=== PATIENT | female | born 1970 | race Caucasian/White ===

== ENCOUNTER 2017-02-20 00:29 | Inpatient (IN) | payer BC, OTHER ==
[2017-02-20 03:31] LABS: ABSOLUTE EOSINOPHILS # (AUTO) 0.1 10^3/uL (0.0-0.6); ABSOLUTE LYMPHOCYTES (AUTO) 2.1 10^3/uL (0.5-4.7); ABSOLUTE NEUT (AUTO) 11.4 10^3/uL (1.7-8.2); BASOPHILS % (AUTO) 0.2 % (0-2); HEMATOCRIT 43.1 % (36.0-47.0); HEMOGLOBIN 14.3 g/dL (12.0-15.5); HGB HCT DIFFERENCE -0.2; LYMPHOCYTES % (AUTO) 14.2 % (13-45); MEAN CORPUSCULAR HEMOGLOBIN 29.3 pg (27.0-33.4); MEAN CORPUSCULAR HGB CONC 33.2 g/dL (32.0-36.0); MEAN CORPUSCULAR VOLUME 88 fl (80-97); MONOCYTES % (AUTO) 6.5 % (3-13); RED BLOOD COUNT 4.88 10^6/uL (3.72-5.28); RED CELL DISTRIBUTION WIDTH 12.9 % (11.5-14.0); SEGMENTED NEUTROPHILS % (AUTO) 78.1 % (42-78); WHITE BLOOD COUNT 14.6 10^3/uL (4.0-10.5)
[2017-02-20 03:38] LABS: ALANINE AMINOTRANSFERASE 204 U/L (9-52); ALBUMIN 4.2 g/dL (3.5-5.0); ALKALINE PHOSPHATASE 103 U/L (38-126); ANION GAP 11 (5-19); ASPARTATE AMINO TRANSFERASE 355 U/L (14-36); BILIRUBIN,DIRECT 0.5 mg/dL (0.0-0.4); BLOOD UREA NITROGEN 18 mg/dL (7-20); CALCIUM 9.6 mg/dL (8.4-10.2); CARBON DIOXIDE 27 mmol/L (22-30); CHLORIDE 104 mmol/L (98-107); GLUCOSE 111 mg/dL (75-110); SODIUM 142.4 mmol/L (137-145); TOTAL PROTEIN 7.1 g/dL (6.3-8.2)
[2017-02-20 04:25] LABS: LIPASE 51815.2 U/L (23-300)
[2017-02-20] MEDS ORDERED: KETOROLAC TROMETHAMINE INJ/PF 30 MG/1 ML SDV IV ONE (04:40)
[2017-02-20] MEDS ORDERED: NORMAL SALINE 1000 ML 1,000 ML IV PRN (05:55)
[2017-02-20] MEDS ORDERED: NORMAL SALINE 1000 ML 1,000 ML IV ONE (05:55)
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
[2017-02-20 06:09] LABS: APPEARANCE,URINE CLOUDY; BILIRUBIN,URINE NEGATIVE (NEGATIVE); GLUCOSE, URINE NEGATIVE (NEGATIVE); KETONES,URINE NEGATIVE (NEGATIVE); LEUKOCYTE ESTERASE,URINE LARGE (NEGATIVE); NITRITE,URINE NEGATIVE (NEGATIVE); PROTEIN,URINE NEGATIVE (NEGATIVE); URINE SPECIFIC GRAVITY 1.014
[2017-02-20] MEDS: MORPHINE SULFATE 10 MG/ML INJ IV PRN ×2 (06:36→07:29)
--- NOTE | 2017-02-20 07:21 | RADIOLOGY REPORT (SQ) ---
EXAM DESCRIPTION: U/S ABDOMEN COMPLETE W/O DOP COMPLETED DATE/TIME: 02/20/2017 7:12 am REASON FOR STUDY: upper abdominal pain need left and right COMPARISON: CT dated 10/11/2011 TECHNIQUE: Dynamic and static grayscale images acquired of the abdomen and recorded on PACS. Additio nal selected color Doppler and spectral images recorded. LIMITATIONS: None. FINDINGS: PANCREAS: No masses. Visualized pancreatic duct normal caliber. LIVER: No masses. Echotexture normal. LIVER VASCULATURE: Normal directional flow of the main portal vein and hepatic veins. GALLBLADDER: Gallstone(s). No pericholecystic fluid. No wall thickening. ULTRASOUND-DETECTED HANNON'S SIGN: Negative. INTRAHEPATIC DUCTS AND COMMON DUCT: CBD and intrahepatic ducts normal caliber. No filling defects. C ommon bile duct measures 5 mm INFERIOR VENA CAVA: Normal flow. AORTA: No aneurysm. RIGHT KIDNEY: Normal size. Normal echogenicity. No solid or suspicious masses. No hydronephros is. No calcifications. LEFT KIDNEY: Normal size. Normal echogenicity. No solid or suspicious masses. No hydronephrosi s. No calcifications. SPLEEN: For patient's the head prior splenectomy. The hypoechoic soft tissue seen in the left upper quadrant measuring 5.8 x 5.0 x 5.8 cm. This could represent residual splenic tissue post splenectomy . CT from 2012 demonstrates splenic like cyst in the left upper quadrant. PERITONEAL AND PLEURAL SPACES: No ascites or effusions. OTHER: No other significant finding. IMPRESSION: Hypoechoic soft tissue seen in the left upper quadrant presumed to represent residual sp lenic tissue eft for 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 Finding correlates to that seen on prior CT from 2012. No other significant abnormality identified. TECHNICAL DOCUMENTATION: JOB ID: [id number] [employer]- All Rights Reserved
[2017-02-20] MEDS ORDERED: ONDANSETRON HCL INJ/PF 4 MG/2 ML SDV IV ONE (07:26)
[2017-02-20] MEDS ORDERED: HYDROMORPHONE HCL INJ/PF 2 MG/ML AMPULE IV ONE ×3 (07:49→10:40)
[2017-02-20] MEDS ORDERED: METOCLOPRAMIDE HCL INJ/PF 10 MG/2 ML SDV IV ONE (07:49)
--- NOTE | 2017-02-20 10:14 | RADIOLOGY REPORT (SQ) ---
EXAM DESCRIPTION: MRI ABDOMEN WITHOUT COMPLETED DATE/TIME: 02/20/2017 10:00 am REASON FOR STUDY: mrcp, gallstone pancreatitis COMPARISON: ULTRASOUND FROM 02/20/[address] FROM 10/11/2011 TECHNIQUE: Noncontrast MRCP. Source and MIP images reviewed. LIMITATIONS: Artifact from gastric occlusion balloon. FINDINGS: GALLBLADDER: Gallstones. No inflammatory change. INTRAHEPATIC DUCTS: Nondilated. EXTRAHEPATIC DUCTS: Common duct is normal caliber. No dilatation of the pancreatic duct. No ductal filling defects noted. PANCREAS: Generally homogeneous, no gross mass or significant signal alteration. No surrounding infl ammatory changes or fluid. Pancreatic duct is normal. LIVER, SPLEEN, KIDNEYS, ADRENALS: Stable postsurgical change related to splenectomy with large splenu le again visualized. Liver, kidneys, and adrenal glands are grossly normal. VESSELS: No evidence of aneurysm. Grossly appropriate flow voids in the major vascular structures. LUNG BASES: Grossly clear. OTHER: No other significant finding. IMPRESSION: CHOLELITHIASIS. OTHERWISE UNREMARKABLE HEPATOBILIARY SYSTEM. NO STONES OR COMMON DUCT A BNORMALITIES. TECHNICAL DOCUMENTATION: JOB ID: [id number] [employer]- All Rights Reserved
[2017-02-20] MEDS ORDERED: ONDANSETRON HCL INJ/PF 4 MG/2 ML SDV IV PRN (10:59)
[2017-02-20] MEDS ORDERED: HYDROMORPHONE HCL INJ/PF 2 MG/ML AMPULE IV PRN (11:04)
[2017-02-20] MEDS ORDERED: ENOXAPARIN SODIUM INJ 40 MG/0.4 ML DISP.SYRIN SUBCUT ONE (12:00)
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
[2017-02-20] MEDS: HYDROMORPHONE HCL INJ/PF 2 MG/ML AMPULE IV PRN ×3 (13:24→21:22)
[2017-02-20] MEDS: NORMAL SALINE 1000 ML 1,000 ML IV PRN ×3 (13:24→21:24)
[2017-02-20] MEDS: ACETAMINOPHEN 325 MG TABLET PO PRN (19:36)
[2017-02-20] MEDS: FAMOTIDINE INJ/PF 20 MG/2 ML SDV IV SCH (21:22)
[2017-02-21] MEDS: NORMAL SALINE 1000 ML 1,000 ML IV PRN ×4 (05:08→20:09)
[2017-02-21] MEDS: HYDROMORPHONE HCL INJ/PF 2 MG/ML AMPULE IV PRN ×5 (05:08→23:19)
[2017-02-21 06:26] LABS: ABSOLUTE BASOPHILS # (AUTO) 0.1 10^3/uL (0.0-0.2); ABSOLUTE EOSINOPHILS # (AUTO) 0.4 10^3/uL (0.0-0.6); ABSOLUTE LYMPHOCYTES (AUTO) 2.4 10^3/uL (0.5-4.7); ABSOLUTE MONOCYTES (AUTO) 0.5 10^3/uL (0.1-1.4); ABSOLUTE NEUT (AUTO) 11.2 10^3/uL (1.7-8.2); BASOPHILS % (AUTO) 0.6 % (0-2); EOSINOPHILS % (AUTO) 2.8 % (0-6); HEMATOCRIT 40.6 % (36.0-47.0); HEMOGLOBIN 13.5 g/dL (12.0-15.5); HGB HCT DIFFERENCE -0.1; LYMPHOCYTES % (AUTO) 16.4 % (13-45); MEAN CORPUSCULAR HEMOGLOBIN 29.7 pg (27.0-33.4); MEAN CORPUSCULAR HGB CONC 33.3 g/dL (32.0-36.0); MEAN CORPUSCULAR VOLUME 89 fl (80-97); MONOCYTES % (AUTO) 3.4 % (3-13); RED BLOOD COUNT 4.56 10^6/uL (3.72-5.28); RED CELL DISTRIBUTION WIDTH 13.6 % (11.5-14.0); SEGMENTED NEUTROPHILS % (AUTO) 76.8 % (42-78); WHITE BLOOD COUNT 14.5 10^3/uL (4.0-10.5)
[2017-02-21 06:37] LABS: ALANINE AMINOTRANSFERASE 537 U/L (9-52); ALBUMIN 3.7 g/dL (3.5-5.0); ALKALINE PHOSPHATASE 151 U/L (38-126); ANION GAP 11 (5-19); ASPARTATE AMINO TRANSFERASE 366 U/L (14-36); BILIRUBIN,DIRECT 0.6 mg/dL (0.0-0.4); BILIRUBIN,TOTAL 1.5 mg/dL (0.2-1.3); BLOOD UREA NITROGEN 13 mg/dL (7-20); CALCIUM 8.9 mg/dL (8.4-10.2); CARBON DIOXIDE 21 mmol/L (22-30); CHLORIDE 108 mmol/L (98-107); CHOLESTEROL 192.64 mg/dL (0-200); CREATININE RESULT 0.73 mg/dL (0.52-1.25); Direct HDL 57 mg/dL (>40); GLUCOSE 71 mg/dL (75-110); MAGNESIUM 2.2 mg/dL (1.6-2.3); POTASSIUM 4.4 mmol/L (3.6-5.0); SODIUM 139.9 mmol/L (137-145); TOTAL PROTEIN 6.6 g/dL (6.3-8.2); TRIGLYCERIDES 84 mg/dL (<150)
[2017-02-21 06:48] LABS: DIRECT LDL 110 mg/dL (<100)
[2017-02-21 06:49] LABS: LIPASE 2161.6 U/L (23-300)
[2017-02-21] MEDS: ACETAMINOPHEN 325 MG TABLET PO PRN ×3 (07:24→18:05)
[2017-02-21] MEDS: ENOXAPARIN SODIUM INJ 40 MG/0.4 ML DISP.SYRIN SUBCUT SCH (09:42)
[2017-02-21] MEDS: VENLAFAXINE HCL 75 MG CAP.SR.24H PO SCH (09:44)
[2017-02-21] MEDS: FAMOTIDINE INJ/PF 20 MG/2 ML SDV IV SCH ×2 (09:45→21:06)
--- NOTE | 2017-02-21 10:10 | PDOC PROGRESS REPORT ---
Subjective Progress Note for:: 02/21/17 Subjective:: Patient is seen on rounds, she is resting comfortably in bed. She states her abdominal pain is much improved from yesterday. She has no nausea. She is feeling hungry. She denies any diarrhea, she has not had a bowel movement in 3 days. She denies any shortness of breath or dyspnea. She denies any dysuria. She denies any headaches, myalgias of arthralgias. Remaining review of systems is negative. Physical Exam Vital Signs: Temp Pulse Resp BP Pulse Ox 98.4 F 102 H 16 127/85 H 96 02/21/17 07:40 02/21/17 07:40 02/21/17 07:40 02/21/17 07:40 02/21/17 07:40 Intake & Output 02/20/17 02/21/17 02/22/17 06:59 06:59 06:59 Intake Total 1800 Balance 1800 Weight 89.8 kg General appearance: PRESENT: no acute distress, well-developed, well-nourished Head exam: PRESENT: atraumatic, normocephalic Eye exam: PRESENT: conjunctiva pink, EOMI, PERRLA. ABSENT: scleral icterus Ear exam: PRESENT: normal external ear exam Mouth exam: PRESENT: moist, tongue midline Neck exam: ABSENT: carotid bruit, JVD, lymphadenopathy, thyromegaly Respiratory exam: PRESENT: clear to auscultation ozzy, symmetrical, unlabored. ABSENT: rales, rhonchi, wheezes Cardiovascular exam: PRESENT: RRR. ABSENT: diastolic murmur, rubs, systolic murmur Pulses: PRESENT: normal dorsalis pedis pul GI/Abdominal exam: PRESENT: normal bowel sounds - mild epigastric to deep palpation, soft, tenderness Rectal exam: PRESENT: deferred Extremities exam: PRESENT: full ROM. ABSENT: calf tenderness, clubbing, pedal edema Musculoskeletal exam: PRESENT: ambulatory, full ROM, normal inspection Neurological exam: PRESENT: alert, awake, oriented to person, oriented to place , oriented to time, oriented to situation, CN II-XII grossly intact. ABSENT: motor sensory deficit Psychiatric exam: PRESENT: appropriate affect, normal mood. ABSENT: homicidal ideation, suicidal ideation Skin exam: PRESENT: dry, intact, warm. ABSENT: cyanosis, rash Results Laboratory Results: 02/21/17 06:04 02/21/17 06:04 02/21/17 02/21/17 06:04 06:04 WBC 14.5 H RBC 4.56 Hgb 13.5 Hct 40.6 MCV 89 MCH 29.7 MCHC 33.3 RDW 13.6 Plt Count 379 Seg Neutrophils % 76.8 Lymphocytes % 16.4 Monocytes % 3.4 Eosinophils % 2.8 Basophils % 0.6 Absolute Neutrophils 11.2 H Absolute Lymphocytes 2.4 Absolute Monocytes 0.5 Absolute Eosinophils 0.4 Absolute Basophils 0.1 Sodium 139.9 Potassium 4.4 Chloride 108 H Carbon Dioxide 21 L Anion Gap 11 BUN 13 Creatinine 0.73 Est GFR ( Amer) > 60 Est GFR (Non-Af Amer) > 60 Glucose 71 L Calcium 8.9 Magnesium 2.2 Total Bilirubin 1.5 H AST 366 H ALT 537 H Alkaline Phosphatase 151 H Total Protein 6.6 Albumin 3.7 Triglycerides 84 Cholesterol 192.64 LDL Cholesterol Direct 110 H VLDL Cholesterol 17.0 HDL Cholesterol 57 Lipase 2161.6 H Impressions: Abdomen Ultrasound 02/20/17 05:57 IMPRESSION: Hypoechoic soft tissue seen in the left upper quadrant presumed to represent residual splenic tissue eft for 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 Finding correlates to that seen on prior CT from 2011. No other significant abnormality identified. Abdomen MRI 02/20/17 08:33 IMPRESSION: CHOLELITHIASIS. OTHERWISE UNREMARKABLE HEPATOBILIARY SYSTEM. NO STONES OR COMMON DUCT ABNORMALITIES. Assessment & Plan - Diagnosis (1) Gallstone pancreatitis Is this a current diagnosis for this admission?: YesPlan: Lipase is improved down to 2100. Pain is almost gone. She is feeling hungry. Will start clear liquids at lunch. Patient instructed to go slowly. Dr Mullen was consulted to remove her gastric balloon prior to lap choley. Patient is in agreement with the plan. Dr Robertson following for surgery (2) Nausea & vomiting Qualifiers: Vomiting Intractability: unspecified Is this a current diagnosis for this admission?: YesPlan: Resolved (3) Hyperlipidemia Qualifiers: Hyperlipidemia type: unspecified Qualified Code(s): E78.5 - Hyperlipidemia, unspecified Is this a current diagnosis for this admission?: YesPlan: Fasting lipid down within acceptable margins (4) H/O bilateral mastectomy Is this a current diagnosis for this admission?: Yes (5) Breast cancer Is this a current diagnosis for this admission?: YesPlan: Past medical history of breast cancer, bilateral mastectomies on Tamoxifen - Time Time Spent with patient: 25-34 minutes Critical Time spent with patient: 15-24 minutes Medications reviewed and adjusted accordingly: Yes
[2017-02-21] MEDS: DOCUSATE SODIUM 100 MG CAPSULE PO SCH ×2 (10:41→18:04)
[2017-02-21] MEDS ORDERED: GLUCAGON,HUMAN RECOMB 1 MG INJ SUBCUT PRN (16:47)
[2017-02-21] MEDS ORDERED: DEXTROSE 40% GEL 15 GM TUBE PO PRN ×2 (16:47)
[2017-02-21] MEDS ORDERED: DEXTROSE 50%-WATER 25 GM/50 ML DISP.SYRIN IV PRN ×2 (16:47)
--- NOTE | 2017-02-21 16:47 | PDOC PROGRESS REPORT ---
Subjective Progress Note for:: 02/21/17 Subjective:: Patient states she feels better and started on some clear liquids. Has showered and moved about today Physical Exam Vital Signs: Temp Pulse Resp BP Pulse Ox 98.3 F 100 19 132/87 H 97 02/21/17 15:06 02/21/17 15:06 02/21/17 15:06 02/21/17 15:06 02/21/17 15:06 Intake & Output 02/20/17 02/21/17 02/22/17 06:59 06:59 06:59 Intake Total 1800 Balance 1800 Weight 89.8 kg General appearance: PRESENT: no acute distress GI/Abdominal exam: PRESENT: other - Much less tender abdomen, no peritoneal signs no rigidity. Results Laboratory Results: 02/21/17 06:04 02/21/17 06:04 02/21/17 02/21/17 06:04 06:04 WBC 14.5 H RBC 4.56 Hgb 13.5 Hct 40.6 MCV 89 MCH 29.7 MCHC 33.3 RDW 13.6 Plt Count 379 Seg Neutrophils % 76.8 Lymphocytes % 16.4 Monocytes % 3.4 Eosinophils % 2.8 Basophils % 0.6 Absolute Neutrophils 11.2 H Absolute Lymphocytes 2.4 Absolute Monocytes 0.5 Absolute Eosinophils 0.4 Absolute Basophils 0.1 Sodium 139.9 Potassium 4.4 Chloride 108 H Carbon Dioxide 21 L Anion Gap 11 BUN 13 Creatinine 0.73 Est GFR ( Amer) > 60 Est GFR (Non-Af Amer) > 60 Glucose 71 L Calcium 8.9 Magnesium 2.2 Total Bilirubin 1.5 H AST 366 H ALT 537 H Alkaline Phosphatase 151 H Total Protein 6.6 Albumin 3.7 Triglycerides 84 Cholesterol 192.64 LDL Cholesterol Direct 110 H VLDL Cholesterol 17.0 HDL Cholesterol 57 Lipase 2161.6 H Impressions: Abdomen Ultrasound 02/20/17 05:57 IMPRESSION: Hypoechoic soft tissue seen in the left upper quadrant presumed to represent residual splenic tissue eft for 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 Finding correlates to that seen on prior CT from 2011. No other significant abnormality identified. Abdomen MRI 02/20/17 08:33 IMPRESSION: CHOLELITHIASIS. OTHERWISE UNREMARKABLE HEPATOBILIARY SYSTEM. NO STONES OR COMMON DUCT ABNORMALITIES. Assessment & Plan - Diagnosis (1) Gallstone pancreatitis Is this a current diagnosis for this admission?: YesPlan: Hospital day 2, clinically improved however leukocytosis, metabolic acidosis persist. Plan: 1. Do not advance diet past clear liquids 2. We will initiate antimicrobial therapy 3. Keep n.p.o. after midnight, as she may be a candidate for laparoscopic surgey, LAP. FABIENNE, with IOC
[2017-02-21] MEDS ORDERED: AMPICILLIN SOD/SULBACTAM 3 GM VIAL ONE ×2 (21:06→21:08)
[2017-02-21] MEDS: AMPICILLIN SODIUM/SULBACTAM NA 3 GM in NORMAL SALINE 100 ML IV SCH (21:19)
[2017-02-22] MEDS: HYDROMORPHONE HCL INJ/PF 2 MG/ML AMPULE IV PRN ×4 (03:53→22:51)
[2017-02-22] MEDS: NORMAL SALINE 1000 ML 1,000 ML IV PRN ×2 (03:53→18:01)
[2017-02-22] MEDS: AMPICILLIN SODIUM/SULBACTAM NA 3 GM in NORMAL SALINE 100 ML IV SCH ×3 (04:54→21:52)
[2017-02-22 05:04] LABS: ABSOLUTE BASOPHILS # (AUTO) 0.1 10^3/uL (0.0-0.2); ABSOLUTE EOSINOPHILS # (AUTO) 0.4 10^3/uL (0.0-0.6); ABSOLUTE MONOCYTES (AUTO) 0.8 10^3/uL (0.1-1.4); ABSOLUTE NEUT (AUTO) 7.8 10^3/uL (1.7-8.2); BASOPHILS % (AUTO) 0.5 % (0-2); EOSINOPHILS % (AUTO) 3.4 % (0-6); HEMOGLOBIN 12.5 g/dL (12.0-15.5); HGB HCT DIFFERENCE 0.5; LYMPHOCYTES % (AUTO) 17.9 % (13-45); MEAN CORPUSCULAR HEMOGLOBIN 30.2 pg (27.0-33.4); MEAN CORPUSCULAR HGB CONC 33.8 g/dL (32.0-36.0); MEAN CORPUSCULAR VOLUME 90 fl (80-97); MONOCYTES % (AUTO) 7.4 % (3-13); RED BLOOD COUNT 4.14 10^6/uL (3.72-5.28); RED CELL DISTRIBUTION WIDTH 13.3 % (11.5-14.0); SEGMENTED NEUTROPHILS % (AUTO) 70.8 % (42-78)
[2017-02-22 05:23] LABS: ALANINE AMINOTRANSFERASE 334 U/L (9-52); ALBUMIN 3.4 g/dL (3.5-5.0); ALKALINE PHOSPHATASE 138 U/L (38-126); ANION GAP 8 (5-19); ASPARTATE AMINO TRANSFERASE 120 U/L (14-36); BILIRUBIN,DIRECT 0.3 mg/dL (0.0-0.4); BILIRUBIN,TOTAL 0.6 mg/dL (0.2-1.3); BLOOD UREA NITROGEN 6 mg/dL (7-20); CALCIUM 8.8 mg/dL (8.4-10.2); CARBON DIOXIDE 24 mmol/L (22-30); CHLORIDE 108 mmol/L (98-107); CREATININE RESULT 0.65 mg/dL (0.52-1.25); GLUCOSE 89 mg/dL (75-110); LIPASE 376.2 U/L (23-300); SODIUM 140.1 mmol/L (137-145); TOTAL PROTEIN 6.2 g/dL (6.3-8.2)
[2017-02-22] MEDS ORDERED: DEXAMETHASONE SOD PHOSPHATE INJ 4 MG/1 ML VIAL ONE (11:21)
[2017-02-22] MEDS ORDERED: ONDANSETRON HCL INJ/PF 4 MG/2 ML SDV ONE (11:21)
[2017-02-22] MEDS ORDERED: LIDOCAINE 2% INJ-PF (20 MG/ML) 10 ML AMPUL ONE (11:21)
[2017-02-22] MEDS ORDERED: SUCCINYLCHOLINE CHLORIDE INJ 200 MG/10 ML VIAL ONE (11:21)
[2017-02-22] MEDS ORDERED: GLYCOPYRROLATE INJ 0.4 MG/2 ML VIAL ONE (11:21)
[2017-02-22] MEDS ORDERED: VECURONIUM BROMIDE INJ 10 MG VIAL IV ONE (11:21)
[2017-02-22] MEDS ORDERED: NEOSTIGMINE METHYLSULFATE 10 MG/10 ML VIAL ONE (11:21)
[2017-02-22] MEDS: VENLAFAXINE HCL 75 MG CAP.SR.24H PO SCH ×2 (11:37→18:21)
[2017-02-22] MEDS: DOCUSATE SODIUM 100 MG CAPSULE PO SCH ×2 (11:37→18:00)
[2017-02-22] MEDS: ENOXAPARIN SODIUM INJ 40 MG/0.4 ML DISP.SYRIN SUBCUT SCH (11:37)
[2017-02-22] MEDS: FAMOTIDINE INJ/PF 20 MG/2 ML SDV IV SCH ×2 (11:37→21:52)
[2017-02-22] MEDS ORDERED: LIDOCAINE 1% INJ-PF (10 MG/ML) 30 ML SDV ONE (12:25)
[2017-02-22] MEDS ORDERED: BUPIVACAINE HCL 0.5%-EPI 1:200000 INJ/PF 30 ML VIAL ONE (12:25)
[2017-02-22] MEDS ORDERED: MIDAZOLAM 2 MG/2 ML INJ ONE (12:30)
[2017-02-22] MEDS ORDERED: FENTANYL CITRATE INJ/PF 250 MCG/5 ML AMPULE ONE (12:30)
[2017-02-22] MEDS ORDERED: PROPOFOL INJ 200 MG/20 ML VIAL IV ONE (12:31)
[2017-02-22] MEDS ORDERED: ONDANSETRON HCL INJ/PF 4 MG/2 ML SDV IV PRN ×2 (13:02→16:07)
[2017-02-22] MEDS ORDERED: DIPHENHYDRAMINE HCL 50 MG/ML VIAL IV PRN (14:16)
[2017-02-22] MEDS ORDERED: FENTANYL CITRATE INJ/PF 100 MCG/2 ML AMPUL IV PRN ×3 (14:16)
[2017-02-22] MEDS ORDERED: MORPHINE SULFATE 10 MG/ML INJ IV PRN ×2 (14:16→15:53)
[2017-02-22] MEDS ORDERED: PROMETHAZINE HCL INJ 25 MG/1 ML VIAL IV PRN (14:16)
--- NOTE | 2017-02-22 14:36 | PDOC PROGRESS REPORT ---
Subjective Progress Note for:: 02/22/17 Subjective:: Patient is seen on rounds, she is resting comfortably in bed. She states her abdominal pain is much improved from yesterday. She has no nausea. She has been NPO since midnight for surgery today. She denies any diarrhea, she has not had a bowel movement in 3 days. She denies any shortness of breath or dyspnea. She denies any dysuria. She denies any headaches, myalgias of arthralgias. Remaining review of systems is negative. Physical Exam Vital Signs: Temp Pulse Resp BP Pulse Ox 98.7 F 95 16 141/91 H 99 02/22/17 11:10 02/22/17 11:10 02/22/17 11:10 02/22/17 11:10 02/22/17 11:10 Intake & Output 02/21/17 02/22/17 02/23/17 06:59 06:59 06:59 Intake Total 1800 6016 0 Output Total 800 0 Balance 1800 5216 0 Weight 89.8 kg 93.1 kg General appearance: PRESENT: no acute distress, obese, well-developed, well- nourished Head exam: PRESENT: atraumatic, normocephalic Eye exam: PRESENT: conjunctiva pink, EOMI, PERRLA. ABSENT: scleral icterus Ear exam: PRESENT: normal external ear exam Mouth exam: PRESENT: moist, tongue midline Neck exam: ABSENT: carotid bruit, JVD, lymphadenopathy, thyromegaly Respiratory exam: PRESENT: clear to auscultation ozzy, symmetrical, unlabored. ABSENT: rales, rhonchi, wheezes Cardiovascular exam: PRESENT: RRR. ABSENT: diastolic murmur, rubs, systolic murmur Pulses: PRESENT: normal dorsalis pedis pul Vascular exam: PRESENT: normal capillary refill GI/Abdominal exam: PRESENT: normal bowel sounds, soft, tenderness - epigastric and left upper quadrant tenderness. ABSENT: distended, guarding, mass, organolmegaly, rebound Rectal exam: PRESENT: deferred Extremities exam: PRESENT: full ROM. ABSENT: calf tenderness, clubbing, pedal edema Musculoskeletal exam: PRESENT: ambulatory Neurological exam: PRESENT: alert, awake, oriented to person, oriented to place , oriented to time, oriented to situation, CN II-XII grossly intact. ABSENT: motor sensory deficit Psychiatric exam: PRESENT: appropriate affect, normal mood. ABSENT: homicidal ideation, suicidal ideation Skin exam: PRESENT: dry, intact, warm. ABSENT: cyanosis, rash Results Laboratory Results: 02/22/17 04:50 02/22/17 04:50 02/22/17 02/22/17 04:50 04:50 WBC 11.0 H RBC 4.14 Hgb 12.5 Hct 37.0 MCV 90 MCH 30.2 MCHC 33.8 RDW 13.3 Plt Count 362 Seg Neutrophils % 70.8 Lymphocytes % 17.9 Monocytes % 7.4 Eosinophils % 3.4 Basophils % 0.5 Absolute Neutrophils 7.8 Absolute Lymphocytes 2.0 Absolute Monocytes 0.8 Absolute Eosinophils 0.4 Absolute Basophils 0.1 Sodium 140.1 Potassium 4.0 Chloride 108 H Carbon Dioxide 24 Anion Gap 8 BUN 6 L Creatinine 0.65 Est GFR ( Amer) > 60 Est GFR (Non-Af Amer) > 60 Glucose 89 Calcium 8.8 Total Bilirubin 0.6 AST 120 H ALT 334 H Alkaline Phosphatase 138 H Total Protein 6.2 L Albumin 3.4 L Lipase 376.2 H Impressions: Abdomen Ultrasound 02/20/17 05:57 IMPRESSION: Hypoechoic soft tissue seen in the left upper quadrant presumed to represent residual splenic tissue eft for 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 Finding correlates to that seen on prior CT from 2011. No other significant abnormality identified. Abdomen MRI 02/20/17 08:33 IMPRESSION: CHOLELITHIASIS. OTHERWISE UNREMARKABLE HEPATOBILIARY SYSTEM. NO STONES OR COMMON DUCT ABNORMALITIES. Assessment & Plan - Diagnosis (1) Gallstone pancreatitis Is this a current diagnosis for this admission?: YesPlan: Lipase is improved down to 2100. Pain is almost gone. She is feeling hungry. Will start clear liquids at lunch. Patient instructed to go slowly. Dr Mullen was consulted to remove her gastric balloon prior to lap choley. Patient is in agreement with the plan. Dr Robertson following for surgery (2) Nausea & vomiting Qualifiers: Vomiting Intractability: unspecified Is this a current diagnosis for this admission?: YesPlan: Resolved (3) Hyperlipidemia Qualifiers: Hyperlipidemia type: unspecified Qualified Code(s): E78.5 - Hyperlipidemia, unspecified Is this a current diagnosis for this admission?: YesPlan: Fasting lipid down within acceptable margins (4) H/O bilateral mastectomy Is this a current diagnosis for this admission?: Yes (5) Breast cancer Is this a current diagnosis for this admission?: YesPlan: Past medical history of breast cancer, bilateral mastectomies on Tamoxifen - Time Time Spent with patient: 25-34 minutes Critical Time spent with patient: 15-24 minutes Medications reviewed and adjusted accordingly: Yes
[2017-02-22] MEDS ORDERED: ACETAMINOPHEN 100 ML IV ONE (14:46)
--- NOTE | 2017-02-22 15:51 | Operative Report ---
Operative Report DATE OF SURGERY: 02/22/17 PREOPERATIVE DIAGNOSIS: gallstone pancreatitis. cholelithiasis POSTOPERATIVE DIAGNOSIS: same OPERATION: laparoscopic cholecystectomy SURGEON: BUCK GARCIA ANESTHESIA: Local TISSUE REMOVED OR ALTERED: gallbladder COMPLICATIONS: none ESTIMATED BLOOD LOSS: 10 cc INTRAOPERATIVE FINDINGS: cholelithiasis PROCEDURE: see dictation
[2017-02-22] MEDS ORDERED: CEFOXITIN INJ 1 GM VIAL IV SCH (16:00)
[2017-02-22] MEDS: FENTANYL CITRATE INJ/PF 100 MCG/2 ML AMPUL ONE ×2 (16:16→16:30)
--- NOTE | 2017-02-22 17:59 | OPERATIVE REPORT E ---
Operative Report NAME: ROSY BLACK : 1970 AGE: 46Y DATE OF SURGERY: 02/22/2017 ROOM: 424 PREOPERATIVE DIAGNOSES: 1. Cholelithiasis. 2. Right upper quadrant pain. 3. Gallstone pancreatitis. POSTOPERATIVE DIAGNOSES: 1. Cholelithiasis. 2. Right upper quadrant pain. 3. Gallstone pancreatitis. OPERATION: Laparoscopic cholecystectomy. SURGEON: BUCK GARCIA M.D. [employer] DIST[employer]BUTION SUPERVISOR: None. ESTIMATED BLOOD LOSS: 10 mL. FLUIDS: 1500. URINE OUTPUT: Not monitored. DRAINS: None. ANESTHESIA: General plus 20 mL of 0.5% Marcaine with epinephrine. INDICATION AND FINDINGS: A 46-year-old female with a history of trauma with a laparotomy and splenectomy years ago presents to the emergency room with a abdominal pain, nausea, vomiting, found to have a cholelithiasis with pancreatitis. However, her pancreatic enzymes have normalized as well as the liver numbers, so the patient is taken to surgery today to undergo laparoscopic cholecystectomy and possible cholangiogram. Procedure risks, benefits, complications including the possibility of bleeding from the liver and injury to common bile duct requiring repair in a tertiary center has been described to the patient. She understands all the above. Her questions are answered. She decided to proceed. DESCRIPTION OF PROCEDURE: The patient was brought into the operating room, the patient was placed in a supine position. General anesthesia induced by endotracheal intubation. Abdomen prepped and draped in the usual fashion. An incision was made just above the umbilicus and the subcutaneous fat divided with Bovie. In the fascia anterior rectus sheath was identified, divided with Bovie in a transverse fashion and tacked with #0-Vicryl sutures; the peritoneum was then grasped with scissors and divided and peritoneal cavity was entered without any difficulty. A David cannula was then placed inside the peritoneal cavity. The balloon over the cannula tip was inflated, and the cannula was then secured against the fascia using the previously placed sutures. Additional ports: A 12 mm port and two 5 mm ports were placed in the epigastrium and right upper quadrant, respectively. The gallbladder was grasped over the fundus and retroflexed. The cystic neck was then grasped and pulled anteriorly towards the patient's right. The critical view of safety was obtained by dividing the right and left peritoneal attachments about the neck and proximal body toward the liver. The dissection was then continued toward the edge of the cystic duct and cystic artery which were completely dissected and identified. Once the critical view of safety was obtained, the cystic artery and cystic duct were identified and dissected. Each of those was individually clipped proximally and distally and divided with scissors. The gallbladder was dissected off the liver bed without any difficulty using a hook cautery and extracted from the peritoneal cavity with an Endo-Bag through the epigastric port. The pneumoperitoneum was then re-established. Under direct visualization, a [id number] #0-Vicryl suture was placed to close the umbilical fascial defect. At this point, the liver hilum was checked and no active bleeding was noted, irrigated with normal saline until clear. All instruments were removed. The CO2 pneumoperitoneum was released. The ports were removed. The fascial defect of the right abdomen was then closed with the previously placed #0-Vicryl suture. The skin was then approximated without any injury. The fascia defect at the umbilicus was closed with the previously #0-Vicryl suture together with a [id number] #0-Vicryl suture placed subsequently. All skin incisions were closed with 4-0 Monocryl using subcuticular suture with Dermabond. The patient tolerated the procedure well, extubated and transferred to the recovery room in satisfactory condition. DICTATING PHYSICIAN: BUCK GARCIA M.D. [id number] PHY#: [id number] ID: [id number] JOB#: [id number] ACCT: [id number] cc:BUCK GARCIA M.D. > [facility]
[2017-02-23] MEDS: HYDROMORPHONE HCL INJ/PF 2 MG/ML AMPULE IV PRN ×3 (03:06→10:11)
[2017-02-23] MEDS: NORMAL SALINE 1000 ML 1,000 ML IV PRN (03:19)
[2017-02-23 04:45] LABS: ABSOLUTE LYMPHOCYTES (AUTO) 1.9 10^3/uL (0.5-4.7); ABSOLUTE MONOCYTES (AUTO) 0.7 10^3/uL (0.1-1.4); ABSOLUTE NEUT (AUTO) 9.9 10^3/uL (1.7-8.2); BASOPHILS % (AUTO) 0.3 % (0-2); EOSINOPHILS % (AUTO) 0.1 % (0-6); HEMATOCRIT 38.1 % (36.0-47.0); HGB HCT DIFFERENCE 0.9; LYMPHOCYTES % (AUTO) 15.2 % (13-45); MEAN CORPUSCULAR HEMOGLOBIN 30.2 pg (27.0-33.4); MEAN CORPUSCULAR HGB CONC 34.1 g/dL (32.0-36.0); MEAN CORPUSCULAR VOLUME 89 fl (80-97); MONOCYTES % (AUTO) 5.4 % (3-13); RED CELL DISTRIBUTION WIDTH 13.4 % (11.5-14.0); WHITE BLOOD COUNT 12.5 10^3/uL (4.0-10.5)
[2017-02-23 05:07] LABS: ALANINE AMINOTRANSFERASE 253 U/L (9-52); ALBUMIN 3.8 g/dL (3.5-5.0); ALKALINE PHOSPHATASE 137 U/L (38-126); ANION GAP 8 (5-19); ASPARTATE AMINO TRANSFERASE 73 U/L (14-36); BILIRUBIN,DIRECT 0.4 mg/dL (0.0-0.4); BILIRUBIN,TOTAL 0.5 mg/dL (0.2-1.3); BLOOD UREA NITROGEN 7 mg/dL (7-20); CALCIUM 9.1 mg/dL (8.4-10.2); CARBON DIOXIDE 28 mmol/L (22-30); CHLORIDE 106 mmol/L (98-107); CREATININE RESULT 0.68 mg/dL (0.52-1.25); GLUCOSE 108 mg/dL (75-110); POTASSIUM 4.1 mmol/L (3.6-5.0); SODIUM 141.7 mmol/L (137-145)
[2017-02-23] MEDS: AMPICILLIN SODIUM/SULBACTAM NA 3 GM in NORMAL SALINE 100 ML IV SCH ×2 (05:13→14:00)
[2017-02-23] MEDS ORDERED: HEPARIN SOD (PORCINE) 5,000 UNIT/ML 1 ML SYRINGE SUBCUT SCH (10:00)
[2017-02-23] MEDS: FAMOTIDINE INJ/PF 20 MG/2 ML SDV IV SCH (10:11)
[2017-02-23] MEDS: DOCUSATE SODIUM 100 MG CAPSULE PO SCH (10:11)
[2017-02-23] MEDS: ENOXAPARIN SODIUM INJ 40 MG/0.4 ML DISP.SYRIN SUBCUT SCH (10:18)
[2017-02-23] MEDS ORDERED: HYDROCODONE/ACETAMINOPHEN 10-325 MG TABLET PO PRN (10:20)
[2017-02-23 14:11] VITALS: BP 138/89
--- NOTE | 2017-02-23 14:29 | PDOC PROGRESS REPORT ---
Subjective Progress Note for:: 02/23/17 Subjective:: patient comfortable, tolerating PO well; no complaints of Physical Exam Vital Signs: Temp Pulse Resp BP Pulse Ox 98.1 F 91 13 138/89 H 96 02/23/17 11:10 02/23/17 11:10 02/23/17 11:10 02/23/17 11:10 02/23/17 11:10 Intake & Output 02/22/17 02/23/17 02/24/17 06:59 06:59 06:59 Intake Total 6016 2700 Output Total 800 2910 Balance 5216 -210 Weight 93.1 kg 93.3 kg Respiratory exam: PRESENT: clear to auscultation ozzy Cardiovascular exam: PRESENT: RRR GI/Abdominal exam: PRESENT: normal bowel sounds, soft, other - wounds clean, dry Results Laboratory Results: 02/23/17 04:00 02/23/17 04:00 02/23/17 02/23/17 04:00 04:00 WBC 12.5 H RBC 4.30 Hgb 13.0 Hct 38.1 MCV 89 MCH 30.2 MCHC 34.1 RDW 13.4 Plt Count 399 Seg Neutrophils % 79.0 H Lymphocytes % 15.2 Monocytes % 5.4 Eosinophils % 0.1 Basophils % 0.3 Absolute Neutrophils 9.9 H Absolute Lymphocytes 1.9 Absolute Monocytes 0.7 Absolute Eosinophils 0.0 Absolute Basophils 0.0 Sodium 141.7 Potassium 4.1 Chloride 106 Carbon Dioxide 28 Anion Gap 8 BUN 7 Creatinine 0.68 Est GFR ( Amer) > 60 Est GFR (Non-Af Amer) > 60 Glucose 108 Calcium 9.1 Total Bilirubin 0.5 AST 73 H ALT 253 H Alkaline Phosphatase 137 H Total Protein 7.0 Albumin 3.8 Impressions: Abdomen Ultrasound 02/20/17 05:57 IMPRESSION: Hypoechoic soft tissue seen in the left upper quadrant presumed to represent residual splenic tissue eft for 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 Finding correlates to that seen on prior CT from 2011. No other significant abnormality identified. Abdomen MRI 02/20/17 08:33 IMPRESSION: CHOLELITHIASIS. OTHERWISE UNREMARKABLE HEPATOBILIARY SYSTEM. NO STONES OR COMMON DUCT ABNORMALITIES. Assessment & Plan - Diagnosis (1) Gallstone pancreatitis Is this a current diagnosis for this admission?: Yes - Plan Summary Plan Summary: A/ POD#1 after laparoscopic cholecystectomy Patient has no c/o Physical exam negative Blood work unremarkable P/ Discharge home today f/u in Surgery Clinic within 1 week no wound care needed Shower only x 2 weeks regular diet resume all activities as tolerated Tylenol/Aleve prn pain
[2017-02-23] MEDS ORDERED: ACETAMINOPHEN 325 MG TABLET PO PRN (14:32)
[2017-02-23] MEDS ORDERED: NAPROXEN 250 MG TABLET PO PRN (14:35)
[2017-02-23] MEDS ORDERED: NALTREXONE HCL PO SCH (18:00)
[2017-02-23] MEDS ORDERED: BUPROPION HCL PO SCH (18:00)
--- NOTE | 2017-02-24 06:09 | OPERATIVE REPORT E ---
Operative Report NAME: ROSY BLACK : 1970 AGE: 46Y DATE OF SURGERY: 02/22/2017 ROOM: 424 PROCEDURE: Esophagogastroduodenoscopy. PHYSICAL EXAM: HEENT: Normal. LYMPH NODES: Normal. LUNGS: Normal. HEART: Normal. ABDOMEN: Normal. MENTAL STATUS: Normal. CONSENT: After obtaining the history and performing the physical examination, the procedure, indications, potential complications like bleeding, perforation, infection, adverse medication reaction and alternatives were explained to the patient. Patient appeared to understand the benefits and risks of this procedure. Informed consent was obtained from the patient/legal guardian after providing opportunity for questions. PREPARATION: EKG pulse, blood pressure and oxygen saturation monitored. INSTRUMENT: Olympus GIF-XQ160 Olympus Gastroscope. ALLERGIES: None. ANESTHESIA: Demerol mg IV. Versed mg IV. PROCEDURE: The gastroscope was gently passed through the incisural orifice into the oral cavity and under direct visualization the esophagus was intubated. The endoscope was passed down the esophagus through the stomach and into the duodenum. Color, texture, mucosa and anatomy of esophagus, stomach and duodenum were carefully examined with the scope. The patient tolerated the procedure well and there were no complications. After completion of the examination, patient was transferred to the recovery room. FINDINGS: OROPHARYNX: Normal. ESOPHAGUS: Normal. GE JUNCTION: Normal. STOMACH: Evidence of prior placed intragastric balloon was noted. Balloon is in good position. Cardia: Normal. Fundus: Normal. Body: Normal. Antrum: Normal. Pylorus: Normal. Bulb: Normal. 2nd Portion: Normal. Balloon removal procedure was performed per protocol using designated trocar to puncture the balloon and drain saline. The balloon removal device was used to grasp the balloon and remove without difficulty. Post-removal examination of the stomach was normal. IMPRESSION: 1. Status post balloon removal. 2. Normal upper GI exam otherwise. PLAN: 1. Will follow up in the office. 2. Patient may proceed with scheduled cholecystectomy. DICTATING PHYSICIAN: ROC MEJIA M.D. [id number] PHY#: [id number] ID: [id number] JOB#: [id number] ACCT: [id number] cc:ROC MEJIA M.D. >
--- NOTE | 2017-02-24 11:14 | CONSULTATION REPORT E ---
Consultation Report NAME: ROSY BLACK : 1970 AGE: 46Y DATE: 424 A TO: ROC MEJIA M.D. FROM: Requesting Physician The patient is a 46-year-old white female status post intragastric balloon placement 6 months ago for weight management. Presented with symptoms of possible gallstone-induced pancreatitis to the emergency room and the patient is scheduled to undergo cholecystectomy. I have been asked for the surgeon to remove the intragastric balloon prior to cholecystectomy. Currently, the patient is doing well. Denies any overt abdominal pain. No nausea. No vomiting. Has tolerated her balloon placement very well and has lost approximately 33 pounds since placement. The patient was due for removal in about 2 to 3 weeks from now. PAST MEDICAL HISTORY: See list. HOME MEDICATIONS: List is reviewed and noted. ALLERGIES: None. PERSONAL AND SOCIAL HISTORY: Lives at home . Does not smoke or drink. REVIEW OF SYSTEMS: Gastrointestinal system -- see history of present illness. Other systems reviewed including general, constitutional, musculoskeletal, hematologic, neurologic, allergy/immunology, eye, ears, nose, throat, skin, psychiatric, respiratory, cardiovascular, genitourinary and endocrine - all within normal limits. PHYSICAL EXAMINATION: Vital signs - blood pressure ____, heart rate of , and temperature is . Respiratory rate of . General exam--is a well-nourished, well-developed, groomed, with no obvious deformities or distress noted. Pupils are equal and bilaterally reactive. [place] conjunctivae. No lid droop. Ears, nose throat-- good dentition. No lip lesions. No oral lesions. No post-pharyngeal lesions. Normal teeth and gums. Respiratory - effort is normal. Lungs are clear to auscultation bilaterally. Normal percussion. Cardiovascular - regular rate and rhythm. Normal S1 and S2. No murmurs. Abdominal aorta is not palpable. Femoral artery is within normal limits. No peripheral edema. Abdomen is flat, soft and nontender. Bowel sounds are present. No guarding and no rigidity. No scars or masses noted. No hepatosplenomegaly. Musculoskeletal - not examined. Lymphatic exam - not examined. No clubbing, cyanosis, lesions or icterus. Psychiatric - oriented to person, place and time. Normal mood. Recent and remote memory are intact. Skin - no jaundice. Normal nail beds. No spider nevi. No palmar erythema. Neck - no thyromegaly. No bruits. Trachea is midline. Breasts - normal. Peripheral pulses and femoral and popliteal and posterior tibial are within normal limits. Joints - normal. ASSESSMENT AND PLAN: A 46-year-old white female presenting with gallstone-induced pancreatitis being status post intragastric balloon placement. PLAN: 1. Will proceed with intragastric balloon removal. 2. Risks, benefits and alternatives are discussed with the patient and all questions were answered. 3. Will follow up in the office upon discharge. DICTATING PHYSICIAN: ROC MEJIA M.D. [id number] PHY#: [id number] ID: [id number] JOB#: [id number] ACCT: [id number] cc:ROC MEJIA M.D. >
--- NOTE | 2017-02-24 17:09 | DISCHARGE SUMMARY E ---
Discharge Summary NAME: ROSY BLACK : 1970 AGE: 46Y ADMITTED: 02/20/2017 DISCHARGED: 02/23/2017 CODE STATUS: FULL CODE. OPERATIVE SURGEON: Dr. Royal. OUTPATIENT CONSULTING LABOR RELATIONS DIRECTOR: Dr. Foote. PRIMARY CARE PROVIDER: Ananth Moody. DISCHARGE DIAGNOSES: Include: 1. Gallstone pancreatitis status post cholecystectomy. 2. Hyperlipidemia. 3. Abnormal LFTs secondary to the above which are improved. 4. History of breast cancer with bilateral mastectomies. 5. Obesity with a BMI of 32. 6. Removal of gastric balloon. DISCHARGE MEDICATIONS: 1. [place] 10/325 one to two tablets p.o. q.6 h. p.r.n., 14 tablets, 0 refills. 2. Contrave ER 80/90 one tablet p.o. b.i.d. 3. Effexor XR 75 mg p.o. daily. DIET: As tolerated. ACTIVITY: As tolerated. HISTORY OF PRESENT ILLNESS: The patient is a 46-year-old female with a past medical history of breast cancer as well as obesity. The patient presented to the emergency department with a chief complaint of abdominal pain. The patient upon presentation was noted to have a lipase of 51,000 with AST of 355 and ALT of 204. The patient had findings that were consistent with an acute cholecystitis, and the patient was referred to the hospitalist for admission and management. HOSPITAL COURSE: The patient was admitted to continuous telemetry unit. The patient does have an indwelling gastric balloon for weight loss. This was placed by her skirt trimmer, Dr. Foote. He was consulted, and the gastric balloon was removed and the patient proceeded with a laparoscopic cholecystectomy with Dr. Royal. With this, the patient had dramatic improvement in his symptoms. Lipase improved significantly. The patient had no evidence of ductal dilation, and the patient's lipase normalized postoperatively. The patient's LFTs as well continued to improve. The patient had complete symptom resolution, her diet was advanced, and the patient has been discharged from the surgical perspective. DIAGNOSTICS: Lab values are as follows: Hematology obtained on 02/23/2017; WBCs , hemoglobin is 13.0, hematocrit is 38.1, platelet count is 309,0000. Chemistry obtained on 02/23/2017: Sodium is 141, potassium 4.1, chloride is 106, carbon dioxide 28, BUN 7, creatinine is 0.68, glucose 108, calcium is 9.1, magnesium is 2.2, bilirubin is 0.5, AST 70, ALT is 253, alkaline phosphatase 137, total protein 7.0, albumin 3.8, triglycerides are 84, cholesterol is 192, LDL 110, VLDL 17, HDL 57, lipase is 376. Urinalysis obtained on 02/20/2017: Color is yellow, appearance cloudy, pH of 7.0, specific gravity is 1.014, protein negative, glucose negative, ketones negative, occult blood, nitrite negative, bilirubin negative, urobilinogen is 2.0, leukocyte esterase is large, WBCs 66, RBCs 2, bacteria 3+, epithelial cells 21, mucus rare, ascorbic acid negative. Urine obtained on 02/24/2017 reveals mixed matilde. 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 Findings correlate with CT imaging from previous contact. MRCP obtained on 02/20/2017 reveals cholelithiasis without evidence of choledocholithiasis, unremarkable hepatobiliary system. Postoperative pathology obtained on 02/22/2017 reveals chronic cholecystitis with cholesterolosis and cholelithiasis. PHYSICAL EXAMINATION: GENERAL: On examination the patient is a well-developed, well-nourished, 46-year-old female who is awake, alert and oriented to person, place, time, and situation. She is verbal, conversational, does not appear to be in any acute distress. VITAL SIGNS: As follows: Temperature is 98.1, pulse 91, respiratory rate 13, blood pressure 130/89, oxygen saturation is 96% on room air. SKIN: Warm and dry. No rash. Not diaphoretic. HEENT: Pupils equal, round, reactive to light and accommodation. Conjunctiva is pink. NECK: No JVP. CARDIOVASCULAR SYSTEM: Heart is regular. There is no murmur or rub. CHEST: Clear, symmetrical, unlabored. ABDOMEN: Post surgical, not overtly tender. Bowel sounds are present. BACK: No CVA tenderness or sacral edema. EXTREMITIES: No clubbing, cyanosis, edema. DISCHARGE PLANNIN. The patient is advised to follow up with her surgicalist within 7 to 10 days for hospital followup. 2. The patient is to follow up with her skirt trimmer as needed for hospital followup. Time spent on this discharge including assessment, plan, physical examination, patient education, and speciality collaboration is 25 minutes. DICTATING PHYSICIAN: CARTER BOBBY NP [id number] PHY#: [id number] ID: [id number] JOB#: [id number] ACCT: [id number] cc:CARTER BOBBY NP > MTDD
== END 2017-02-23 15:45 | disposition home or self-care (01) | DRG 417 ==
LOC: ER 00:29 → EH 10:59 → UNDOADMIN 11:17 → EH 11:17 → 4S 12:39
PROVIDERS: ADMIT Internal Medicine; ATTEND Internal Medicine
PROC: 0FT44ZZ Resection of Gallbladder, Percutaneous Endoscopic Approach (ICD-10-PCS; principal; 2017-02-22 13:00)
PROC: 0DC68ZZ Extirpation of Matter from Stomach, Via Natural or Artificial Opening Endoscopic (ICD-10-PCS; 2017-02-22 13:00)
DX: K80.12 Calculus of gallbladder with acute and chronic cholecystitis without obstruction (principal); K85.10 Biliary acute pancreatitis without necrosis or infection; I10 Essential (primary) hypertension; E78.5 Hyperlipidemia, unspecified; E66.9 Obesity, unspecified; Z98.84 Bariatric surgery status; Z90.13 Acquired absence of bilateral breasts and nipples; Z85.3 Personal history of malignant neoplasm of breast; Z90.81 Acquired absence of spleen; Z79.810 Long term (current) use of selective estrogen receptor modulators (SERMs); Z68.32 Body mass index [BMI] 32.0-32.9, adult
CPT/HCPCS: 36415; 74181; 76700; 790; 80053; 80061; 81001; 83690; 83735; 85025; 87086; 88304; 96361; 96374; 96375; 96376; 99285; J0131; J0295; J0330; J1100; J1170; J1650; J1885; J2250; J2270; J2405; J2704; J2765; J3010; J3490; J7030; S0028